=== PATIENT | male | born 1970 | race Two or more races ===

== ENCOUNTER 2023-07-25 14:12 | Emergency (ER) | payer OTHER ==
[~2023-07-25] VITALS: Ht 172.7 cm; Wt 136.1 kg
[~2023-07-25 14:12] MED LIST: AMARANTH100 GM MC; ATORVASTATIN CA10 MG PO; DOLOGESIC 500-1 EACH PO; FIORICET PO; GLIMEPIRIDE1 MG; GLUCOPHAGE XR500 MG PO; KLONOPIN1 MG/TAB PO; LOZOL2.5 MG PO; PAXIL10 MG/5 ML; PLAVIX75 MG PO; VASOTEC2.5 MG PO; ZOLOFT100 MG PO
[2023-07-25] MEDS ORDERED: HUMALOG100 UNIT/1 (14:39)
[2023-07-25] MEDS ORDERED: LANTUS SOL100 UNIT/1 SQ (14:40)
== END 2023-07-25 17:50 | disposition home or self-care (01) ==
LOC: ER 14:12
DX: S76.319A Strain of muscle, fascia and tendon of the posterior muscle group at thigh level, unspecified thigh, initial encounter (principal); X58.XXXA Exposure to other specified factors, initial encounter; Y93.89 Activity, other specified; Y92.89 Other specified places as the place of occurrence of the external cause; Y99.8 Other external cause status; Z88.6 Allergy status to analgesic agent

== ENCOUNTER 2025-07-17 07:00 | Day surgery (SDC) | payer OTHER ==
[2025-07-10 14:22] VITALS: BP 104/69
[~2025-07-17] VITALS: Ht 172.7 cm; Wt 117.9 kg
[~2025-07-17 07:00] MED LIST changes: +AMBIEN10 MG PO; +HUMALOG100 UNIT/1; +IRBESARTAN75 MG PO; +LANTUS SOL100 UNIT/1 SQ; +TRIJARDY XR 121 EACH PO
[2025-07-17] MEDS ORDERED: CEFAZOLIN SODIUM 1,000 MG VIAL ONE (08:26)
[2025-07-17] MEDS ORDERED: LIDOCAINE HCL 1% 20 ML VIAL IJ ONE (09:39)
== END 2025-07-17 12:05 | disposition home or self-care (01) ==
LOC: CIR.AMB 07:00
PROVIDERS: ATTEND Surgery Surgery of the Hand
DX: M67.843 Other specified disorders of tendon, right hand (principal); M65.841 Other synovitis and tenosynovitis, right hand; Z88.6 Allergy status to analgesic agent